=== PATIENT | female | born 1990 | race Caucasian/White ===

== ENCOUNTER 2022-05-26 16:26 | Emergency (ER) | payer SELFPAY, OTHER ==
[2022-05-26] MEDS ORDERED: Ketorolac Tromethamine 30 MG/ML VIAL ONE (17:17)
[2022-05-26] MEDS ORDERED: Acetaminophen 500 MG TAB ONE (17:17)
== END 2022-05-26 17:50 | disposition home or self-care (01) ==
LOC: ERS 16:26
DX: S82.841A Displaced bimalleolar fracture of right lower leg, initial encounter for closed fracture (principal); V89.2XXA Person injured in unspecified motor-vehicle accident, traffic, initial encounter; Z87.81 Personal history of (healed) traumatic fracture
CPT/HCPCS: 29515; 96374; G0390; J1885